=== PATIENT | male | born 1990 | race Two or more races ===

== ENCOUNTER 2016-09-09 15:14 | Emergency (ER) | payer OTHER ==
[2016-09-09 17:18] VITALS: BP 121/78
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
== END 2016-09-09 23:40 | disposition home or self-care (01) ==
LOC: ED 15:14
DX: S16.1XXA Strain of muscle, fascia and tendon at neck level, initial encounter (principal); S39.012A Strain of muscle, fascia and tendon of lower back, initial encounter; I10 Essential (primary) hypertension; J45.909 Unspecified asthma, uncomplicated; V49.59XA Passenger injured in collision with other motor vehicles in traffic accident, initial encounter; Y93.9 Activity, unspecified; Y92.9 Unspecified place or not applicable; Y99.9 Unspecified external cause status
CPT/HCPCS: 99282

== ENCOUNTER 2017-04-09 13:57 | Emergency (ER) | payer SELFPAY ==
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
[2017-04-09] MEDS ORDERED: NORCO 5/325 PO ONE (15:56)
[2017-04-09] MEDS ORDERED: TRIMOX PO ONE (15:56)
[2017-04-09 16:18] VITALS: BP 142/90
== END 2017-04-09 16:12 | disposition home or self-care (01) ==
LOC: ED 13:57
DX: K02.9 Dental caries, unspecified (principal); J45.909 Unspecified asthma, uncomplicated; F17.200 Nicotine dependence, unspecified, uncomplicated
CPT/HCPCS: 99282

== ENCOUNTER 2017-10-23 21:42 | Emergency (ER) | payer SELFPAY ==
[2017-10-24] MEDS ORDERED: MOTRIN PO ONE (01:11)
[2017-10-24] MEDS ORDERED: BOOSTRIX IM ONE (01:11)
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
[2017-10-24 02:18] VITALS: BP 114/63
== END 2017-10-24 02:21 | disposition home or self-care (01) ==
LOC: ED 21:42
DX: L03.012 Cellulitis of left finger (principal); J45.909 Unspecified asthma, uncomplicated; F17.200 Nicotine dependence, unspecified, uncomplicated
CPT/HCPCS: 90471; 90715

== ENCOUNTER 2018-04-18 14:58 | Emergency (ER) | payer SELFPAY ==
[2018-04-18 17:53] LABS: Bilirubin,Urine NEG (Negative); Blood,Urine NEG (Negative); Color,Urine Yellow (Yellow); Mucus,Urine 1+ /HPF; Protein,Urine <15 mg/dL mg/dL (Negative); Urobilinogen,Urine < 2.0 mg/dL (<2.0)
--- NOTE | 2018-04-18 18:24 | Emergency Department Report ---
Vomiting/Diarrhea - HPI Chief Complaint: Nausea/Vomiting/Diarrhea Stated Complaint: THORWING UP 2 DAYS Time Seen by Provider: 04/18/18 17:41 Duration: 2 Days Severity: mild Nausea/Vomiting Severity: Mild Diarrhea Severity: None Pain Location: Generalized Pain Severity: Mild Symptoms: Yes Able to Tolerate Fluids, No Watery Diarrhea, No Bloody diarrhea, No Fever, No Recent Unusual Foods, No Recent Untreated Water, No Recent use of Antibiotics, No Family w/ Similar Symptoms, No Contacts w/ Similar Symptoms, No Rash, No Hematuria, No Recent URI Symptoms Other History: This is a 27-year-old -[place] male who presents with nausea and vomiting for 2 days. Patient states he ate something a few days ago that didn't agree with his primary and then secured since. He is currently taken Tylenol and Aleve for no improvement in symptoms. Patient states pain is sharp and lasts for 3-4 hours when it occurs. He reports pain shortly after eating or sitting for long periods of times. He reports the last episode of nausea and vomiting around 6:00 this morning. He was able to eat breakfast and hold it down. He is also complaining of some low back pain that is worse with bending. He states he feels like something is stabbing him in the back. He denies dysuria, frequency, urgency, burning sensation, chest pain, and diarrhea. ED Review of Systems ROS: Stated complaint: THORWING UP 2 DAYS Other details as noted in HPI Constitutional: denies: chills, fever Respiratory: denies: cough, shortness of breath, wheezing Cardiovascular: denies: chest pain, palpitations Gastrointestinal: nausea, vomiting. denies: abdominal pain, diarrhea Musculoskeletal: back pain (low back pain). denies: joint swelling, arthralgia , myalgia Neurological: denies: headache, weakness, paresthesias Psychiatric: denies: anxiety, depression ED Past Medical Hx - Past Medical History Previous Medical History?: Yes Hx Hypertension: Yes Hx Asthma: Yes Additional medical history: HEART MURMUR - Surgical History Past Surgical History?: Yes Additional Surgical History: head surgery? - Social History Smoking Status: Current Every Day Smoker Substance Use Type: Non Opiate Pain - Medications Home Medications: Home Medications Medication Instructions Recorded Confirmed Last Taken Type Acetaminophen/Codeine [Tylenol #3] 1 tab PO Q6H PRN #7 tab 04/09/17 Unknown Rx Amoxicillin 500 mg PO BID #20 capsule 04/09/17 Unknown Rx Ibuprofen [Motrin] 600 mg PO Q8H PRN #20 tablet 04/09/17 Unknown Rx Ibuprofen [Motrin] 600 mg PO Q8H PRN #30 tablet 10/24/17 Unknown Rx Sulfamethoxazole/Trimethoprim 1 each PO BID #14 tablet 10/24/17 Unknown Rx [Bactrim DS TAB] Ondansetron [Zofran Odt] 4 mg PO TID PRN #8 tab.rapdis 04/18/18 Unknown Rx Ranitidine HCl [Zantac 150 MG TAB] 150 mg PO BID #14 tablet 04/18/18 Unknown Rx Vomiting Diarrhea Exam - Exam General: Vital signs noted. No distress. Alert and acting appropriately. HEENT: Yes Moist Mucous Membranes, No Pharyngeal Erythema, No Pharyngeal Exudates, No Rhinorrhea, No Conjuctival Injection, No Frontal Tenderness, No Maxillary Tenderness Neck: No Adenopathy, No Rigidity Lungs: Yes Clear Lung Sounds, Yes Good Air Exchange, No Wheezes, No Stridor, No Cough, No Nasal Flaring, No Retractions, No Use of Accessory Muscles Heart exam: Regular: Yes, Murmur: No, Tachycardia: No Abdomen: Tenderness: No, Peritoneal Signs: No, Distention: No, Hyperactive Bowel sounds: No Skin exam: Rash: No, Edema: No, Normal turgor: Yes Neurologic: Alert and oriented, no deficits. Musculoskeletal: Unremarkable. ED Course Vital Signs 04/18/18 15:02 Temperature 98 F Pulse Rate 78 Respiratory 18 Rate Blood Pressure 104/62 O2 Sat by Pulse 95 Oximetry ED Medical Decision Making - Lab Data Result diagrams: 04/18/18 18:30 04/18/18 18:30 - Medical Decision Making Patient is stable and was examined by me. Vitals stable. Obtained CMP, CBC, lipase, & UA. Glucose low, ordered point of care glucose 126. Normal physical exam. Plan to start zofran and Zantac for gastroenteritis. Discussed plan with patient and agreed to plan. No further questions noted by the patient. Discharged home in stable condition. Follow up with PCP in 2-3 days. Critical care attestation.: If time is entered above; I have spent that time in minutes in the direct care of this critically ill patient, excluding procedure time. ED Disposition Clinical Impression: Nausea and vomiting in adult, Gastroenteritis Disposition: DC-01 TO HOME OR SELFCARE Is pt being admited?: No Does the pt Need Aspirin: No Condition: Stable Instructions: Acute Nausea and Vomiting (ED), Gastroenteritis (ED) Additional Instructions: Frequent hand washing is important to reduce spread. Prompt disinfection of contaminated surfaces with household chlorine bleach- based rn liaison and washing of soiled clothing and bedding should be advised. If food or water is thought to be contaminated, it should be avoided. Increase fluid intake. Drinks high in sugars such as carbonated soft drinks, fruit juice, and highly sugared liquids should be avoided. Prescriptions: Ondansetron [Zofran Odt] 4 mg PO TID PRN #8 tab.rapdis PRN Reason: Nausea And Vomiting Ranitidine HCl [Zantac 150 MG TAB] 150 mg PO BID #14 tablet Referrals: [facility] [Outside] - 3-5 Days [facility] [Outside] - 3-5 Days [facility] [Outside] - 3-5 Days Time of Disposition: 19:20 Print Language: [email or web address]
[2018-04-18 18:44] LABS: Basophils % (Auto) 0.5 % (0.0-1.8); Eosinophils # (Auto) 0.2 K/mm3 (0.0-0.4); Eosinophils % (Auto) 4.6 % (0.0-4.3); Hematocrit 39.6 % (35.5-45.6); Hemoglobin 13.7 gm/dl (11.8-15.2); Lymphocytes # (Auto) 1.5 K/mm3 (1.2-5.4); Lymphocytes % (Auto) 29.8 % (13.4-35.0); Mean Corpuscular HGB Conc 35 % (32-34); Mean Corpuscular Hemoglobin 31 pg (28-32); Mean Corpuscular Volume 88 fl (84-94); Monocytes # (Auto) 0.6 K/mm3 (0.0-0.8); Monocytes % (Auto) 11.1 % (0.0-7.3); Platelet Count 193 K/mm3 (140-440); Red Blood Count 4.49 M/mm3 (3.65-5.03)
[2018-04-18 18:56] LABS: Alanine Aminotransferase 7 units/L (7-56); Albumin 3.9 g/dL (3.9-5); BUN/Creatinine Ratio 16; Blood Urea Nitrogen 13 mg/dL (9-20); Calcium 9.2 mg/dL (8.4-10.2); Hemolysis Index 27; Lipase 22 units/L (13-60)
[2018-04-18 19:31] VITALS: BP 110/60
== END 2018-04-18 19:38 | disposition home or self-care (01) ==
LOC: ED 14:58
DX: K52.9 Noninfective gastroenteritis and colitis, unspecified (principal); I10 Essential (primary) hypertension; J45.909 Unspecified asthma, uncomplicated; E16.2 Hypoglycemia, unspecified; F17.200 Nicotine dependence, unspecified, uncomplicated
CPT/HCPCS: 36415; 80053; 81001; 82962; 83690; 85025; 99283